=== PATIENT | male | born 1955 | race Hispanic/Latino ===

== ENCOUNTER 2016-12-04 08:28 | Emergency (ER) | payer OTHER ==
[2016-12-04 08:51] VITALS: RESP 18; TEMP 97.8; O2SAT 100; BMI 33.1
--- NOTE | 2016-12-04 08:56 | ED PDOC ---
Arrival/HPI - General Chief Complaint: Male Genitourinary Time Seen by Provider: 12/04/16 08:44 Historian: Patient - History of Present Illness Time/Duration: Other (Last night) Symptom Onset: Gradual Symptom Course: Worsening Quality: Aching Severity Level: Mild Activities at Onset: Rest Associated Symptoms (Text): 12/04/16 08:53 Patient reports that he is unable to urinate this morning. He last urinated sometime in the middle of the night. He has some mild suprapubic discomfort. No fever or chills. He has never experienced this problem previously, though he does have difficulty starting and maintaining his stream. No nausea vomiting or diarrhea. Family/Social History - Physician Review Nursing Documentation Reviewed: Yes Family/Social History: Unknown Family HX Smoking Status: Never Smoked Hx Alcohol Use: Yes Frequency of alcohol use: Socially Hx Substance Use: No Allergies/Home Meds Allergies/Adverse Reactions: Allergies No Known Allergies Allergy (Unverified 12/04/16 08:51) Review of Systems - Physician Review All systems were reviewed & negative as marked: Yes - Review of Systems Respiratory: Normal Cardiovascular: Normal Gastrointestinal: Normal Genitourinary Male: Other (Urgency) Physical Exam Vital Signs Temp Pulse Resp BP Pulse Ox 12/04/16 08:50 97.8 F 99 H 18 145/80 100 Temperature: Afebrile Blood Pressure: Normal Pulse: Regular Respiratory Rate: Normal Appearance: Positive for: Well-Appearing, Non-Toxic, Uncomfortable Pain Distress: Mild Mental Status: Positive for: Alert and Oriented X 3 - Systems Exam Head: Present: Atraumatic, Normocephalic Pupils: Present: PERRL Conjunctiva: Present: Normal Mouth: Present: Moist Mucous Membranes Neck: Present: Normal Range of Motion Respiratory/Chest: Present: Clear to Auscultation, Good Air Exchange, Decreased Breath Sounds. No: Respiratory Distress, Accessory Muscle Use Cardiovascular: Present: Regular Rate and Rhythm, Normal S1, S2. No: Murmurs Abdomen: Present: Normal Bowel Sounds. No: Tenderness, Distention, Peritoneal Signs, Rebound, Guarding Back: Present: Normal Inspection. No: CVA Tenderness Upper Extremity: Present: Normal Inspection. No: Cyanosis, Edema Lower Extremity: Present: Normal Inspection. No: Edema Neurological: Present: GCS=15, CN II-XII Intact, Speech Normal, Motor Func Grossly Intact Skin: Present: Warm, Dry, Rashes (Severe bilateral groin fungal rash), Normal Color Psychiatric: Present: Alert, Oriented x 3, Normal Insight, Normal Concentration Medical Decision Making - Lab Interpretations Lab Results: 12/04/16 09:10 12/04/16 09:10 Lab Results 12/04/16 09:20: Urine Color Yellow, Urine Appearance Clear, Urine pH 6.0, Ur Specific [place] 1.025, Urine Protein Negative, Urine Glucose (UA) Negative, Urine Ketones Negative, Urine Blood Small H, Urine Nitrate Negative, Urine Bilirubin Negative, Urine Urobilinogen 0.2, Ur Leukocyte Esterase Negative, Urine RBC 25 - 30, Urine WBC 0 - 2, Urine Bacteria Few 12/04/16 09:10: Sodium 142, Potassium 3.8, Chloride 106, Carbon Dioxide 26, Anion Gap 14, BUN 13, Creatinine 0.7 L, Est GFR ( Amer) > 60, Est GFR ( Non-Af Amer) > 60, Random Glucose 121 H, Calcium 9.3, Total Bilirubin 0.8, AST 26, ALT 50, Alkaline Phosphatase 86, Total Protein 7.1, Albumin 4.5, Globulin 2.5, Albumin/Globulin Ratio 1.8 12/04/16 09:10: WBC 5.5, RBC 4.81, Hgb 15.4, Hct 44.0, MCV 91.5, MCH 32.0, MCHC 35.0, RDW 13.1, Plt Count 116 L, MPV 10.3, Gran % 76.7 H, Lymph % (Auto) 15.0 L , [place] % (Auto) 6.6 H, Eos % (Auto) 1.5, Baso % (Auto) 0.2, Gran # 4.18, Lymph # 0.8 L, [place] # 0.4, Eos # 0.1, Baso # 0.01 Disposition/Present on Arrival - Present on Arrival Any Indicators Present on Arrival: No History of DVT/PE: No History of Uncontrolled Diabetes: No Urinary Catheter: No History of Decub. Ulcer: No - Disposition Have Diagnosis and Disposition been Completed?: Yes Diagnosis: Urinary retention, Hematuria, Urinary tract infection Disposition: HOME/ ROUTINE Disposition Time: 09:53 Patient Plan: Discharge Condition: GOOD Discharge Instructions (ExitCare): Urinary Retention in Men (ED), Urinary Tract Infection in Men (ED), Urinary Leg Bag (GEN), Greer Catheter Placement and Care (ED) Prescriptions: Ciprofloxacin HCl [Cipro] 500 mg PO BID #20 tab Referrals: Renzo Cottrell MD [Staff Provider] - Follow up with primary Forms: [employer] (Norwegian)
[2016-12-04 09:29] LABS: BASO # 0.01 K/mm3 (0.0-2.0); BASO % 0.2 % (0.0-3.0); EOS # 0.1 (0.0-0.7); EOS % 1.5 % (1.5-5.0); GRAN # 4.18 (1.4-6.5); GRAN % 76.7 % (50.0-68.0); LYMPH # 0.8 (1.2-3.4); MEAN CELL VOLUME 91.5 fl (80.0-105.0); MEAN PLATELET VOLUME 10.3 fl (7.0-11.0); MONO # 0.4 (0.1-0.6); MONO % 6.6 % (1.0-6.0); RED CELL DISTRIBUTION WIDTH 13.1 % (11.5-14.5); WHITE BLOOD COUNT 5.5 10^3/ul (4.5-11.0)
[2016-12-04 09:32] LABS: URINE BILIRUBIN NEGATIVE (NEGATIVE); URINE BLOOD SMALL (NEGATIVE); URINE GLUCOSE (UA) NEGATIVE (NEGATIVE); URINE KETONE NEGATIVE (NEGATIVE); URINE LEUKOCYTE ESTERASE NEGATIVE Leu/uL (NEGATIVE); URINE PROTEIN NEGATIVE mg/dL (<30 mg/dL); URINE UROBILINOGEN 0.2 E.U./dL (<1 E.U./dL)
[2016-12-04 09:34] LABS: URINE APPEARANCE CLEAR (CLEAR); URINE COLOR YELLOW (YELLOW)
[2016-12-04 09:39] LABS: ALB/GLOB RATIO 1.8 (1.1-1.8); ALKALINE PHOSPHATASE 86 U/L (38-126); ALT/SGPT 50 U/L (7-56); AST/SGOT 26 U/L (17-59); BILIRUBIN,TOTAL 0.8 mg/dL (0.2-1.3); BLOOD UREA NITROGEN 13 mg/dL (7-21); CALCIUM 9.3 mg/dL (8.4-10.5); CARBON DIOXIDE 26 mmol/L (21-33); CHLORIDE 106 mmol/L (95-110); GFR AFRICAN-AMERICAN > 60; GLUCOSE,RANDOM 121 mg/dL (70-110); POTASSIUM 3.8 mmol/L (3.6-5.0); SODIUM 142 mmol/L (132-148); TOTAL PROTEIN 7.1 g/dL (5.8-8.3)
[2016-12-04 09:50] LABS: URINE BACTERIA FEW (NEG); URINE RBC 25 - 30 /hpf (0-2); URINE WBC 0 - 2 /hpf (0-6)
[2016-12-04 10:52] VITALS: BP 156/90; PULSE 80
== END 2016-12-04 10:54 | disposition home or self-care (01) ==
LOC: ED 08:28
DX: R33.9 Retention of urine, unspecified (principal); N39.0 Urinary tract infection, site not specified; R31.9 Hematuria, unspecified

== ENCOUNTER 2016-12-04 16:43 | Emergency (ER) | payer OTHER ==
[2016-12-04 16:44] VITALS: BMI 33.1
[2016-12-04 17:15] VITALS: BP 167/91; TEMP 98.4
--- NOTE | 2016-12-04 18:35 | ED PDOC ---
Arrival/HPI - General Chief Complaint: Male Genitourinary Time Seen by Provider: 12/04/16 16:53 Historian: Patient - History of Present Illness Narrative History of Present Illness (Text): 12/04/16 19:11 60yr old male presents today with pain at the head of the penis. pt states he was in the ER today and had caldwell catheter placed. pt states that he went to urologist and scheduled appointment for tomorrow. pt states that he took azo for pain without improvement. pt c/o burning at the head of the penis. denies abdominal pain. pt states he want bag changed. Denies abdominal pain. no cp or sob. no other complaints. Past Medical History - Provider Review Nursing Documentation Reviewed: Yes - Travel History Have you recently traveled outside [place] w/in the past 3 mons?: No - Infectious Disease Hx of Infectious Diseases: None - Cardiac Hx Hypertension: Yes - Neurological Hx Neurological Disorder: No - HEENT Hx Blind: Yes (left eye) - Renal Hx Renal Disorder: No - Endocrine/Metabolic Hx Endocrine Disorders: No - Hematological/Oncological Hx Blood Disorders: No - Integumentary Hx Dermatological Disorder: No - Musculoskeletal/Rheumatological Hx Musculoskeletal Disorders: No - Gastrointestinal Hx Gastroesophageal Reflux: Yes Other/Comment: esophageal ulcers in the past - Genitourinary/Gynecological Hx Prostate Problems: Yes - Psychiatric Hx Psychophysiologic Disorder: No Hx Substance Use: No - Surgical History Other/Comment: b/l eyes - Anesthesia Hx Anesthesia: No Family/Social History - Physician Review Nursing Documentation Reviewed: Yes Family/Social History: Unknown Family HX Smoking Status: Never Smoked Hx Alcohol Use: Yes Hx Substance Use: No Allergies/Home Meds Allergies/Adverse Reactions: Allergies No Known Allergies Allergy (Unverified 12/04/16 08:51) Review of Systems - Review of Systems Constitutional: absent: Fatigue, Fevers Respiratory: absent: SOB, Cough Cardiovascular: absent: Chest Pain, Palpitations Gastrointestinal: absent: Abdominal Pain, Constipation, Diarrhea, Nausea, Vomiting Genitourinary Male: Other (burning to head of penis). absent: Dysuria, Frequency, Hematuria Musculoskeletal: absent: Arthralgias, Back Pain, Neck Pain Skin: absent: Rash, Pruritis Neurological: absent: Headache, Dizziness Physical Exam Vital Signs Reviewed: Yes Vital Signs Temp Pulse Resp BP Pulse Ox 12/04/16 17:00 98.4 F 60 18 167/91 H 97 Temperature: Afebrile Blood Pressure: Normal Pulse: Regular Respiratory Rate: Normal Appearance: Positive for: Well-Appearing, Non-Toxic, Comfortable Pain Distress: None Mental Status: Positive for: Alert and Oriented X 3 - Systems Exam Head: Present: Atraumatic Respiratory/Chest: Present: Clear to Auscultation Cardiovascular: Present: Regular Rate and Rhythm Abdomen: No: Tenderness Genitourinary Male: Present: Normal External Genitalia, Circumcised Penis, Other (caldwell in place. ). No: Lesions, Testicle Tenderness, Penile Swelling, Testicle Swelling Back: No: Midline Tenderness, Paraspinal Tenderness Upper Extremity: Present: Normal ROM Lower Extremity: Present: Normal ROM Neurological: Present: GCS=15, Speech Normal Skin: Present: Warm, Dry, Normal Color. No: Rashes Psychiatric: Present: Alert, Oriented x 3 Medical Decision Making ED Course and Treatment: 12/04/16 19:14 60yr old male c/o pain to head of penis after caldwell catheter insertion today. pt requesting pain medication. will change caldwell catheter. toradol given for pain. pt currently on cipro. 18F catheter placed. UA from earlier visit today showed blood without bacteria or leukocytes; urine culture pending. case discussed with dr. Cottrell; he advised f/u in the office tomorrow. the patient can put bacitracin around the uretral meatus, give flomax. He advised that patient should not pull or tug or touch the catheter. Continue cipro. first dose of flomax given in er. pt reassessment; pt feeling better; pt has f/u appointment with urologist for tomorrow at 930am. i discussed plan with patient; advised continue abx and use flomax daily. advised applying bacitracin to head of penis; advised avoiding touching the catheter and site. advised immediate return if symptoms worsen,persist or if new symptoms develop. Patient verbalizes understanding of discharge instructions and need for immediate followup. all aspects of this case were discussed the attending of record. impression; caldwell catheter problem. Continue antibiotics as prescribed. Flomax once daily x 4 days. Follow up with the urologist tomorrow; DO NOT MISS YOUR APPOINTMENT. Follow up with the primary care physician within the next 2 days. Return immediately if symptoms worsen, persist or if new symptoms develop. - Medication Orders Current Medication Orders: Tamsulosin HCl (Flomax) 0.4 mg PO STAT STA Stop: 12/04/16 21:15 Discontinued Medications Ketorolac Tromethamine (Toradol) 60 mg IM STAT STA Stop: 12/04/16 18:56 Last Admin: 12/04/16 19:03 Dose: 60 mg MAR Pain Assessment Document 12/04/16 19:03 CA (Rec: 12/04/16 19:04 CA [id number]) Pain Reassessment Is this a pain reassessment? No Sleep Is patient sleeping during reassessment? No Presence of Pain Presence of Pain Yes Pain Scale Used Pain Scale Used Numeric Description Description Constant Intensity of Pain at present 10 Acceptable Level of Pain 2 Pain Behavior Guarding Facial Grimacing IM Administration Charges Document 12/04/16 19:03 NH (Rec: 12/04/16 19:04 CA [id number]) Injection Site MAR Injection Site Left Gluteus Geovanny Charges for Administration # of IM Administrations 1 Disposition/Present on Arrival - Present on Arrival Any Indicators Present on Arrival: No History of DVT/PE: No History of Uncontrolled Diabetes: No Urinary Catheter: No History of Decub. Ulcer: No History Surgical Site Infection Following: None - Disposition Have Diagnosis and Disposition been Completed?: Yes Diagnosis: Caldwell catheter problem Disposition: HOME/ ROUTINE Disposition Time: 19:24 Patient Plan: Discharge Patient Problems: Current Active Problems Problem Status Onset Caldwell catheter problem Acute Condition: GOOD Discharge Instructions (ExitCare): Urinary Leg Bag (GEN), Caldwell Catheter Placement and Care (ED) Additional Instructions: Continue antibiotics as prescribed. Flomax once daily x 4 days. Follow up with the urologist tomorrow at 9:30; DO NOT MISS YOUR APPOINTMENT. Follow up with the primary care physician within the next 2 days. Return immediately if symptoms worsen, persist or if new symptoms develop. Prescriptions: Tamsulosin [Flomax] 0.4 mg PO DAILY #4 cap Referrals: Maninder Crane DO [Staff Provider] - Follow up with primary Moustapha Sepulveda MD [Staff Provider] - Follow up with primary Renzo Cottrell MD [Staff Provider] - Follow up with primary Forms: [employer] (German)
[2016-12-04 22:43] VITALS: RESP 20; O2SAT 98
[2016-12-04 22:44] VITALS: PULSE 70
== END 2016-12-04 22:20 | disposition home or self-care (01) ==
LOC: ED 16:43
DX: T83.84XA Pain due to genitourinary prosthetic devices, implants and grafts, initial encounter (principal)
CPT/HCPCS: 96372; 99284; J1885